=== PATIENT | male | born 1995 | race Caucasian/White ===

== ENCOUNTER 2021-05-16 06:12 | Day surgery (SDC) | payer BC ==
[2021-05-13 17:00] VITALS: BMI 21.6
[2021-05-16] MEDS ORDERED: DEXAMETHASONE SOD PHOSPHATE 10 MG/1 ML VIAL ONE (07:14)
[2021-05-16] MEDS ORDERED: MIDAZOLAM HCL 2 MG/2 ML SINGLE DOSE VIAL ONE (07:15)
[2021-05-16] MEDS ORDERED: ROPIVACAINE HCL 0.5% 30ML VIAL ONE (07:15)
[2021-05-16] MEDS ORDERED: EPINEPHrine 1:1,000 1 MG/1 ML - 30ML VIAL (INJECTION) ONE ×2 (07:22→07:26)
[2021-05-16] MEDS ORDERED: PROPOFOL 20 ML ONE ×4 (07:35→09:07)
[2021-05-16] MEDS ORDERED: ceFAZolin SODIUM 1 GM VIAL ONE (07:58)
[2021-05-16] MEDS ORDERED: DEXAMETHASONE SOD PHOSPHATE 4 MG/1 ML VIAL ONE (08:00)
[2021-05-16] MEDS ORDERED: ONDANSETRON 4 MG/2 ML VIAL ONE (08:00)
[2021-05-16] MEDS ORDERED: ONDANSETRON 4 MG/2 ML VIAL IVPUSH PRN (09:26)
[2021-05-16] MEDS ORDERED: oxyCODONE HCL 5 MG TABLET PO PRN (09:26)
[2021-05-16] MEDS ORDERED: LACTATED RINGERS SOLUTION 1,000 ML IV SCH (09:30)
[2021-05-16 10:17] VITALS: TEMP 97.4
[2021-05-16 11:22] VITALS: BP 100/56; PULSE 83
== END 2021-05-16 11:15 | disposition home or self-care (01) ==
LOC: FASU 06:12
PROVIDERS: ATTEND Orthopaedic Surgery Sports Medicine
PROC: 0MM14ZZ Reattachment of Right Shoulder Bursa and Ligament, Percutaneous Endoscopic Approach (ICD-10-PCS; principal; 2021-05-16 08:17)
DX: S43.431A Superior glenoid labrum lesion of right shoulder, initial encounter (principal); X58.XXXA Exposure to other specified factors, initial encounter; Y93.9 Activity, unspecified; Y92.9 Unspecified place or not applicable
CPT/HCPCS: 94760; J1100